=== PATIENT | female | born 1975 ===

== ENCOUNTER 2018-01-17 09:19 | Outpatient (CLI) | payer OTHER ==
--- NOTE | 2018-01-17 10:52 | ULT ---
PELVIC SONOGRAM TRANSABDOMINAL IMAGING WITH DUPLEX EVALUATION: History: Pelvic pain. Fibroid disease. FINDINGS: Urinary bladder is incompletely distended. Uterus has a heterogeneous echotexture and measures up to 10.4 cm. There is marked heterogeneity of the myometrium. At the anterior aspect of the uterine fundu s is a 5.9 cm rounded hypoechoic mass. Endometrium is predominately obscured. No free fluid within th e pelvis. Right ovary is 3.0 cm and left is 4.2 cm with a dominant follicle. Good color and spectral doppler flow within each ovary. IMPRESSION: Large fundal fibroid. POS: [facility]
== END 2018-01-17 09:20 | disposition home or self-care (01) ==
LOC: BICULT 09:19
PROVIDERS: ATTEND Family Medicine
DX: N93.9 Abnormal uterine and vaginal bleeding, unspecified (principal); D64.9 Anemia, unspecified; D25.9 Leiomyoma of uterus, unspecified
CPT/HCPCS: 76856; 93976